=== PATIENT | male | born 1970 | race Two or more races ===

== ENCOUNTER 2018-08-01 12:57 | Emergency (ER) | payer MEDICAID ==
--- NOTE | 2018-08-01 14:22 | EDPHY ---
General Time Seen by Provider: 08/01/18 14:20 Narrative: CHIEF COMPLAINT: Drink some bad juice HISTORY OF PRESENT ILLNESS: Patient presents with complaints of "I drink some bad grape juice." He states this happened approximately 2 hr ago. He then small to do since Tuesday strong odor. He had some numbness of the mouth and tongue, warmth of his ears and back of his head. He had no chest pain. No shortness of breath. No abdominal pain. Symptoms were constant for about an hour but have now resolved spontaneously without intervention. He has no complaints of any kind at this time. No other associated complaints or modifying factors. TIME OF INJURY: 2 hr prior to arrival MEDICAL/SURGICAL/SOCIAL HISTORY: Diabetes, hypertension. Daily smoker. Lives independently. REVIEW OF SYSTEMS: Ten systems reviewed and are negative unless otherwise noted in the HPI EXAMINATION General Appearance: Alert, no distress Head: normocephalic, atraumatic ENT: Airway is widely patent. Uvula midline. No trismus. No erythema or edema. Cardiovascular: Pulses normal throughout. Brisk cap refill Neurological: A&O, light sensory symmetric, strength symmetric in the wrists, interossei, knees and ankles. Skin: Warm and dry, no rash. No cellulitis or petechiae. Extremities: Nontender, no pedal edema DIFFERENTIAL DIAGNOSES: Including but not limited to food-borne illness, contaminated food sores, topical irritant MDM: 2:20 p.m. Adverse reaction to grape juice that the patient drank 2 hr prior to arrival. His symptoms have now resolved. Has no vomiting. No abdominal pain. No diarrhea. No fever. No seizure activity. No trismus or jaw claudication. I do not feel that significant damage to the food is likely. He is well- appearing. He is conversing in full sentences. If discharged home stable condition with ED precautions. SUPERVISION: This patient was independently evaluated without direct involvement of or examination by the attending physician. ED Precautions: Worsening pain. Erythema, edema, cyanosis, pallor, paresthesia or anesthesia. - History Smoking Status: Current every day smoker - Objective Vital Signs: Initial Vital Signs Temperature (C) 98.1 F 08/01/18 13:04 Heart Rate 65 08/01/18 13:04 Respiratory Rate 16 08/01/18 13:04 Blood Pressure 145/72 H 08/01/18 13:04 O2 Sat (%) 97 08/01/18 13:04 O2 Delivery Mode Room Air Allergies/Adverse Reactions: No Known Allergies Allergy (Unverified 08/01/18 13:06) Home Medications: Medication Instructions Recorded Lisinopril 08/01/18 Metformin HCl 08/01/18 Naproxen 08/01/18 Departure - Departure Disposition: Home, Routine, Self-Care Clinical Impression: Adverse food reaction Qualifiers: Encounter type: initial encounter Qualified Code(s): T78.1XXA - Other adverse food reactions, not elsewhere classified, initial encounter Condition: Good Instructions: Food Poisoning (ED) Additional Instructions: 1. Contact primary care physician for outpatient follow-up 2. Return here for any abdominal pain, chest pain, blood in the stool, vomiting , seizure activity, difficulty opening closing her mouth Referrals: KEVIN YEE [Other] - As per Instructions Stand Alone Forms: Work Excuse
[2018-08-01 14:31] VITALS: BP 116/69
== END 2018-08-01 14:31 | disposition home or self-care (01) ==
DX: T78.1XXA Other adverse food reactions, not elsewhere classified, initial encounter (principal)